=== PATIENT | male | born 1960 | race Caucasian/White ===

== ENCOUNTER 2017-02-23 19:27 | Emergency (ER) | payer OTHER ==
[~2017-02-23] VITALS: Ht 198.1 cm; Wt 104.0 kg
[2017-02-23] MEDS ORDERED: PLEASE ENTER ALLERGIES MC SCH ×2 (20:00)
[2017-02-23] MEDS ORDERED: SODIUM CHLORIDE FLUSH 10ML SYR IVF ONE (20:00)
[2017-02-23] MEDS ORDERED: SODIUM CHLORIDE 0.9% 1,000ML IVBOLUS ONE (20:00)
[2017-02-23 20:41] LABS: BLOOD UREA NITROGEN 18 mg/dL (7-18)
[2017-02-23 20:47] LABS: ASPARTATE AMINO TRANSFERASE 22 U/L (15-37)
[2017-02-23 21:07] VITALS: BP 121/79
== END 2017-02-23 22:21 | disposition home or self-care (01) ==
LOC: ED 22:10
DX: K92.2 Gastrointestinal hemorrhage, unspecified (principal)
CPT/HCPCS: 36415; 80053; 85025; 85610; 85730; 86850; 86900; 96360; 99284; J7030